=== PATIENT | male | born 2000 | race Caucasian/White ===

== ENCOUNTER 2024-08-18 08:25 | Emergency (ER) | payer BC ==
[2024-08-18] MEDS: Ibuprofen 600 MG Tab PO ONE (10:17)
== END 2024-08-18 11:50 | disposition home or self-care (01) ==
LOC: MW.ED 08:25
DX: S90.32XA Contusion of left foot, initial encounter (principal); Z75.8 Other problems related to medical facilities and other health care; W19.XXXA Unspecified fall, initial encounter
CPT/HCPCS: 73630; 99283; A9270